=== PATIENT | female | born 2000 | race American Indian/Alaskan Native ===

== ENCOUNTER 2021-03-20 11:11 | Emergency (ER) | payer SELFPAY ==
[2021-03-20 12:29] LABS: HCG Qualitative,Urine Negative (Negative)
--- NOTE | 2021-03-20 12:31 | Emergency Department Report ---
HPI - General Chief Complaint: Abdominal Pain PUI?: No Time Seen by Provider: 03/20/21 11:35 - HPI HPI: The patient was evaluated in the emergency department for symptoms described in the history of present illness. He/she was evaluated in the context of the global COVID-19 pandemic, which necessitated consideration that the patient might be at risk for infection with the virus that causes COVID-19. Institutional protocols and algorithms that pertain to the evaluation of patients at risk for COVID-19 are in a state of rapid change based on information released by regulatory bodies including the CDC and federal and state organizations. These policies and algorithms were followed during the patient's care in the emergency department. Please note that these policies, procedures and recommendations changed on a rapid basis. 20-year-old -Iranian female presents to the emergency room for 2-day history of right flank pain. Patient states that she has been drinking well increased urination nausea but no vomiting. She states that she has a history of autoimmune hepatitis C. Patient states that the pain is on her right flank where she had her biopsy of her liver. Patient does admit to intermittent itchi ng of her skin. She is currently taking Protonix last filled on 05/14/2020. She states her pain is 8 and 9 out of 10. She states her last menstrual period was 02/17/2021 and she spots last per. Only lasted 2 to 3 days. ED Past Medical Hx - Past Medical History Previous Medical History?: Yes Additional medical history: autoimmune hepatits. h. Pylori - Surgical History Past Surgical History?: Yes Additional Surgical History: liver biopsy - Medications Home Medications: Home Medications Medication Instructions Recorded Confirmed Last Taken Type Nitrofurantoin [place]/M-Cryst 100 mg PO Q12HR 10 Days #20 capsule 03/20/21 Unknown Rx [Macrobid CAP] ED Review of Systems ROS: Stated complaint: PAIN IN RT SIDE Other details as noted in HPI Comment: All other systems reviewed and negative Physical Exam - Physical Exam Vital Signs: Vital Signs 03/20/21 11:27 Temperature 98.5 F Pulse Rate 85 Respiratory 18 Rate Blood Pressure 130/80 [Right] O2 Sat by Pulse 100 Oximetry General: GENERAL APPEARANCE: Well developed, well nourished, in no acute distress. SKIN: Inspection of the skin reveals no rashes, ulcerations or petechiae. HEENT: The sclerae were anicteric and conjunctivae were pink and moist. Extraocular movements were intact and pupils were equal, round, and reactive to light with normal accommodation. External inspection of the ears and nose showed no scars, lesions, or masses. Lips, teeth, and gums showed normal mucosa. The oral mucosa, hard and soft palate, tongue and posterior pharynx were normal. NECK: Supple and symmetric. CHEST: Normal AP diameter and normal contour without any kyphoscoliosis. LUNGS: Auscultation of the lungs revealed normal breath sounds without any other adventitious sounds or rubs. CARDIOVASCULAR: There was a regular rate and rhythm without any murmurs, gallops, rubs. The carotid pulses were normal and 2+ bilaterally without bruits. Peripheral pulses were 2+ and symmetric. ABDOMEN: Soft and nontender with normal bowel sounds. The liver edge was nontender. The spleen was not palpable. There were no inguinal or umbilical hernias noted. No ascites was noted. MUSCULOSKELETAL: Gait was normal. There was no tenderness or effusions noted. Muscle strength and tone were normal. EXTREMITIES: No cyanosis, clubbing or edema. NEUROLOGIC: Alert and oriented x 3. Normal affect. Gait was normal. . Sensation to touch was normal. Physical Exam: Physical exam ED Course Vital Signs 03/20/21 11:27 Temperature 98.5 F Pulse Rate 85 Respiratory 18 Rate Blood Pressure 130/80 [Right] O2 Sat by Pulse 100 Oximetry ED Medical Decision Making - Lab Data Result diagrams: 03/20/21 12:04 03/20/21 12:04 Lab Results 03/20/21 03/20/21 03/20/21 Range/Units 12:04 12:04 Unknown WBC 9.3 (4.5-11.0) K/mm3 RBC 5.06 H (3.65-5.03) M/mm3 Hgb 11.1 (10.1-14.3) gm/dl Hct 36.1 (30.3-42.9) % MCV 71 L (79-97) fl MCH 22 L (28-32) pg MCHC 31 (30-34) % RDW 16.0 H (13.2-15.2) % Plt Count 170 (140-440) K/mm3 Lymph % (Auto) 19.3 (13.4-35.0) % [place] % (Auto) 7.6 H (0.0-7.3) % Eos % (Auto) 0.7 (0.0-4.3) % Baso % (Auto) 0.6 (0.0-1.8) % Lymph # (Auto) 1.8 (1.2-5.4) K/mm3 [place] # (Auto) 0.7 (0.0-0.8) K/mm3 Eos # (Auto) 0.1 (0.0-0.4) K/mm3 Baso # (Auto) 0.1 (0.0-0.1) K/mm3 Seg Neutrophils % 71.8 H (40.0-70.0) % Seg Neutrophils # 6.6 (1.8-7.7) K/mm3 Sodium 137 (137-145) mmol/L Potassium 4.6 (3.6-5.0) mmol/L Chloride 102.3 (98-107) mmol/L Carbon Dioxide 23 (22-30) mmol/L Anion Gap 16 mmol/L BUN 15 (7-17) mg/dL Creatinine 0.5 L (0.6-1.2) mg/dL Estimated GFR > 60 ml/min BUN/Creatinine Ratio 30 % Glucose 85 (65-100) mg/dL Calcium 9.1 (8.4-10.2) mg/dL Total Bilirubin 0.30 (0.1-1.2) mg/dL AST 27 (5-40) units/L ALT 26 (7-56) units/L Alkaline Phosphatase 111 (35-129) units/L Total Protein 8.0 (6.3-8.2) g/dL Albumin 4.3 (3.9-5) g/dL Albumin/Globulin Ratio 1.2 % Urine Color Yellow (Yellow) Urine Turbidity Cloudy (Clear) Urine pH 8.0 H (5.0-7.0) Ur Specific [place] 1.015 (1.003-1.030) Urine Protein 100 mg/dl (Negative) mg/dL Urine Glucose (UA) Neg (Negative) mg/dL Urine Ketones Neg (Negative) mg/dL Urine Blood Sm (Negative) Urine Nitrite Neg (Negative) Ur Reducing Substances Not Reportable Urine Bilirubin Neg (Negative) Urine Ictotest Not Reportable Urine Urobilinogen 2.0 (<2.0) mg/dL Ur Leukocyte Esterase Lg (Negative) Urine WBC (Auto) > 182.0 H (0.0-6.0) /HPF Urine RBC (Auto) 14.0 (0.0-6.0) /HPF U Epithel Cells (Auto) 11.0 (0-13.0) /HPF Urine Mucus Few /HPF Urine HCG, Qual Negative (Negative) - Medical Decision Making 20-year-old -Iranian female presents to the emergency room for 2-day history of right flank pain. Patient states that she has been drinking well increased urination nausea but no vomiting. She states that she has a history of autoimmune hepatitis C. Patient states that the pain is on her right flank where she had her biopsy of her liver. Patient does admit to intermittent itching of her skin. She is currently taking Protonix last filled on 05/14/2020. She states her pain is 8 and 9 out of 10. She states her last menstrual period was 02/17/2021 and she spots last per. Only lasted 2 to 3 days. Serum labs are stable urinalysis shows she has a urinary tract infection with greater than 182 WBCs and leukoesterase or protein. Patient be treated with Macrobid. Instructed to increase her fluid intake. She can take ibuprofen for pain. Follow-up with her primary care provider. Critical care attestation.: If time is entered above; I have spent that time in minutes in the direct care of this critically ill patient, excluding procedure time. ED Disposition Clinical Impression: UTI (urinary tract infection) Disposition: 01 HOME / SELF CARE / HOMELESS Is pt being admited?: No Does the pt Need Aspirin: No Condition: Stable Instructions: Abdominal Pain (ED), Urinary Tract Infection, Adult, [id number] Additional Instructions: Urine shows you have a urinary tract infection. All other labs are within normal limits. Negative test. I recommend to complete antibiotics she can take ibuprofen for pain management and follow-up with a primary care provider. I have listed their information below. Be sure to increase your water intake. Prescriptions: Nitrofurantoin [place]/M-Cryst [Macrobid CAP] 100 mg PO Q12HR 10 Days #20 capsule Referrals: AMANDA AGUILAR MD [Staff Physician] - 3-5 Days KELSIE RAYGOZA MD [Staff Physician] - 3-5 Days Forms: Work/School Release Form(ED) Time of Disposition: 14:11
[2021-03-20 12:39] LABS: Basophils # (Auto) 0.1 K/mm3 (0.0-0.1); Basophils % (Auto) 0.6 % (0.0-1.8); Eosinophils # (Auto) 0.1 K/mm3 (0.0-0.4); Eosinophils % (Auto) 0.7 % (0.0-4.3); Hematocrit 36.1 % (30.3-42.9); Hemoglobin 11.1 gm/dl (10.1-14.3); Lymphocytes # (Auto) 1.8 K/mm3 (1.2-5.4); Lymphocytes % (Auto) 19.3 % (13.4-35.0); Mean Corpuscular HGB Conc 31 % (30-34); Mean Corpuscular Volume 71 fl (79-97); Monocytes # (Auto) 0.7 K/mm3 (0.0-0.8); Monocytes % (Auto) 7.6 % (0.0-7.3); Platelet Count 170 K/mm3 (140-440); Red Blood Count 5.06 M/mm3 (3.65-5.03)
[2021-03-20 12:44] LABS: Bilirubin,Urine NEG (Negative); Blood,Urine SM (Negative); Color,Urine Yellow (Yellow); Mucus,Urine FEW /HPF
[2021-03-20 12:49] LABS: WBC,Urine > 182.0 /HPF (0.0-6.0)
[2021-03-20 13:02] LABS: Alanine Aminotransferase 26 units/L (7-56); Albumin 4.3 g/dL (3.9-5); Blood Urea Nitrogen 15 mg/dL (7-17); Calcium 9.1 mg/dL (8.4-10.2); Hemolysis Index 9
[2021-03-20 13:03] LABS: BUN/Creatinine Ratio 30
[2021-03-20 13:32] VITALS: BP 109/67
== END 2021-03-20 15:02 | disposition home or self-care (01) ==
LOC: ED 11:11
DX: N39.0 Urinary tract infection, site not specified (principal)
CPT/HCPCS: 36415; 80053; 81001; 81025; 85025; 99283

== ENCOUNTER 2021-10-10 23:51 | Emergency (ER) | payer SELFPAY ==
[2021-10-10 23:58] VITALS: BP 130/82
== END 2021-10-11 01:01 | disposition left against medical advice (07) ==
LOC: ED 23:51
DX: R11.10 Vomiting, unspecified (principal); Z53.21 Procedure and treatment not carried out due to patient leaving prior to being seen by health care provider